=== PATIENT | female | born 1985 | race Two or more races ===

== ENCOUNTER 2022-10-29 22:37 | Inpatient (IN) | payer OTHER ==
[2022-10-29 23:04] VITALS: BMI 28.3
[2022-10-29] MEDS ORDERED: P-EPHED 60MG/TRIPROLIDI 2.5MG TABLET PO PRN (23:26)
[2022-10-29] MEDS ORDERED: BENZONATATE 200 MG CAPSULE PO PRN (23:26)
[2022-10-29] MEDS ORDERED: BENZOCAINE/MENTHOL (CHLORASEPTIC ) LOZENGE MM PRN (23:26)
[2022-10-29] MEDS ORDERED: DICYCLOMINE HCL 10 MG CAPSULE PO PRN (23:26)
[2022-10-29] MEDS ORDERED: MAG HYDROX/AL HYDROX/SIMETH 30 ML UNIT-DOSE CUP PO PRN (23:26)
[2022-10-29] MEDS ORDERED: NALOXONE HCL 0.4 MG/ML VIAL IM PRN (23:26)
[2022-10-29] MEDS ORDERED: POLYETHYLENE GLYCOL (HEALTHYLAX) 3350 17 GM PACKET PO PRN (23:26)
[2022-10-29] MEDS ORDERED: ACETAMINOPHEN 325 MG TABLET (FP) PO PRN (23:26)
[2022-10-29] MEDS ORDERED: MAGNESIUM HYDROX 2400MG/30ML ORAL SUSPENSION 30 ML CUP PO PRN (23:26)
[2022-10-29] MEDS ORDERED: NALOXONE HCL (KLOXXADO) 8 MG SPRAY NS PRN (23:26)
[2022-10-29] MEDS ORDERED: MELATONIN 5 MG TABLETS PO PRN (23:26)
[2022-10-29] MEDS ORDERED: BISMUTH SUBSALICYLATE 524 MG/30 ML PO PRN (23:26)
[2022-10-29] MEDS ORDERED: ONDANSETRON *ODT* 4 MG TABLET SL PRN (23:26)
[2022-10-29] MEDS ORDERED: guaiFENesin 600 MG TABLET.ER (FP) PO PRN (23:26)
[2022-10-29] MEDS ORDERED: LOPERAMIDE HCL 2 MG CAPSULE PO PRN (23:26)
[2022-10-29] MEDS ORDERED: cloNIDine HCL 0.1 MG TABLET PO PRN (23:30)
[2022-10-30] MEDS ORDERED: methaDONE HCL 10 MG TABLET (FOR DETOX USE ONLY) PO ONE
[2022-10-30] MEDS ORDERED: diazePAM 5 MG TABLET PO ONE
[2022-10-30] MEDS: IBUPROFEN 400 MG TABLET (FP) PO PRN ×2 (01:18→10:07)
[2022-10-30] MEDS: diazePAM 5 MG TABLET PO PRN (01:19)
[2022-10-30] MEDS: NICOTINE POLACRILEX 2 MG GUM BUC PRN ×4 (05:55→19:30)
[2022-10-30] MEDS: METHOCARBAMOL 500 MG TABLET PO PRN ×2 (05:55→17:25)
[2022-10-30] MEDS: diazePAM 5 MG TABLET PO SCH ×4 (05:55→22:06)
[2022-10-30] MEDS: PRENATAL VITAMINS W/ FOLIC ACID TABLET (FP) PO SCH (10:07)
[2022-10-30] MEDS: NICOTINE 14 MG/24 HOURS TOPICAL PATCH TD SCH (10:09)
[2022-10-30 10:36] LABS: ALBUMIN 3.4 g/dl (3.4-5.0); CALCIUM 8.9 mg/dL (8.5-10.1)
[2022-10-30 10:37] LABS: BLOOD UREA NITROGEN 9.7 mg/dL (7-18)
[2022-10-30 10:38] LABS: HEMATOCRIT 35.4 % (32.4-45.2); HEMOGLOBIN 12.5 GM/dL (10.7-15.3); MCH 32.2 pg (25.7-33.7); MCHC 35.2 g/dl (32.0-36.0); MEAN CELL VOLUME 91.4 fl (80-96); MEAN PLT VOLUME 7.9 fl (7.5-11.1); PLATELET COUNT 214 10^3/uL (134-434); RBC 3.88 M/mm3 (3.60-5.2); WHITE BLOOD COUNT 9.1 K/mm3 (4.0-10.0)
[2022-10-30 10:40] LABS: CREATININE 0.9 mg/dL (0.55-1.3)
[2022-10-30 10:41] LABS: BILIRUBIN,TOTAL 0.4 mg/dL (0.2-1)
[2022-10-30] MEDS: IBUPROFEN 600 MG TABLET (FP) PO PRN (19:14)
[2022-10-30] MEDS: THIAMINE HCL 100 MG TABLET (FP) PO SCH (22:06)
[2022-10-30] MEDS: traZODone HCL 50 MG TABLET (FP) PO PRN (22:07)
[2022-10-30] MEDS ORDERED: traZODone HCL 50 MG TABLET (FP) PO ONE (23:55)
[2022-10-31] MEDS: diazePAM 5 MG TABLET PO SCH ×3 (05:59→22:04)
[2022-10-31] MEDS: IBUPROFEN 400 MG TABLET (FP) PO PRN (08:41)
[2022-10-31] MEDS: NICOTINE POLACRILEX 2 MG GUM BUC PRN ×4 (08:42→21:37)
[2022-10-31] MEDS ORDERED: methaDONE HCL 10 MG TABLET (FOR DETOX USE ONLY) PO ONE (10:00)
[2022-10-31] MEDS: NICOTINE 14 MG/24 HOURS TOPICAL PATCH TD SCH (10:03)
[2022-10-31] MEDS: METHOCARBAMOL 500 MG TABLET PO PRN ×2 (10:04→22:03)
[2022-10-31] MEDS: diazePAM 5 MG TABLET PO PRN (10:04)
[2022-10-31] MEDS: PRENATAL VITAMINS W/ FOLIC ACID TABLET (FP) PO SCH (10:04)
[2022-10-31] MEDS: IBUPROFEN 600 MG TABLET (FP) PO PRN (17:30)
[2022-10-31] MEDS: traZODone HCL 50 MG TABLET (FP) PO PRN (22:03)
[2022-10-31] MEDS: THIAMINE HCL 100 MG TABLET (FP) PO SCH (22:03)
[2022-11-01] MEDS: diazePAM 5 MG TABLET PO SCH ×2 (05:55→17:46)
[2022-11-01] MEDS: PRENATAL VITAMINS W/ FOLIC ACID TABLET (FP) PO SCH (10:02)
[2022-11-01] MEDS: NICOTINE 14 MG/24 HOURS TOPICAL PATCH TD SCH (10:03)
[2022-11-01] MEDS: IBUPROFEN 400 MG TABLET (FP) PO PRN (10:04)
[2022-11-01] MEDS: NICOTINE POLACRILEX 2 MG GUM BUC PRN ×3 (10:04→17:48)
[2022-11-01] MEDS: METHOCARBAMOL 500 MG TABLET PO PRN (10:05)
[2022-11-01] MEDS ORDERED: NICOTINE 21 MG/24 HOURS TOPICAL PATCH TD SCH (14:00)
[2022-11-01 18:40] VITALS: RESP 18
[2022-11-01] MEDS: THIAMINE HCL 100 MG TABLET (FP) PO SCH (22:07)
[2022-11-01] MEDS: traZODone HCL 50 MG TABLET (FP) PO PRN (22:07)
[2022-11-01] MEDS: diazePAM 5 MG TABLET PO PRN (22:08)
[2022-11-02] MEDS: IBUPROFEN 600 MG TABLET (FP) PO PRN (05:43)
[2022-11-02] MEDS ORDERED: diazePAM 5 MG TABLET PO ONE (06:00)
[2022-11-02 09:26] VITALS: BP 113/73; PULSE 69; TEMP 97.6
[2022-11-02] MEDS ORDERED: methaDONE HCL 10 MG TABLET (FOR DETOX USE ONLY) PO ONE (10:00)
== END 2022-11-02 09:07 | disposition home or self-care (01) | DRG 773 ==
LOC: YASAS 22:37 → Y6N 23:36
PROVIDERS: ADMIT Allergy & Immunology; ATTEND Surgery
PROC: HZ2ZZZZ Detoxification Services for Substance Abuse Treatment (ICD-10-PCS; principal; 2022-10-29)
DX: F11.23 Opioid dependence with withdrawal (principal); F10.230 Alcohol dependence with withdrawal, uncomplicated; F13.230 Sedative, hypnotic or anxiolytic dependence with withdrawal, uncomplicated; F17.210 Nicotine dependence, cigarettes, uncomplicated; F14.10 Cocaine abuse, uncomplicated; F19.282 Other psychoactive substance dependence with psychoactive substance-induced sleep disorder
CPT/HCPCS: 36415; 80053; 81025; 85027; 86780; C9803-CS; U0003; U0005